=== PATIENT | male | born 1965 | race Two or more races ===

== ENCOUNTER 2017-07-27 23:55 | Inpatient (IN) | payer MEDICARE, MEDICAID ==
[~2017-07-27] VITALS: Ht 177.8 cm; Wt 71.7 kg
[2017-07-28 00:05] VITALS: BP 117/73
--- NOTE | 2017-07-28 00:05 | NUR ---
GPS ADMISSION NOTE, RECEIVED PATIENT FROM [facility]. PATIENT ARRIVED ON THIS UNIT AT 0005 VIA STRETCHER WITH 2 EMT ESCORTS. PATIENT ADMITTED ON A 5150 HOLD FOR DTS. PER HOLD PATIENT REPORTED THAT HE IS SUICIDAL WITH A PLAN TO JUMP OFF SOMETHING HIGH. PATIENT ADMITS HE HAS NOT SLEPT IN 2 DAYS, HAS A DECREASED APPETITE, AND REPORTS SADNESS DUE TO A OF A FRIEND. PATIENT UNABLE TO CONTRACT FOR SAFETY AT THIS TIME. THE 5150 WAS REVIEWED AND THE DOCUMENTATION IN THE 5150 HOLD APPEARS TO REFLECT THE PRESENTATION OF THE PATIENT. UPON FACE TO FACE ASSESSMENT PATIENT IS CURRENTLY LYING IN BED AWAKE, HAS NO S/S OR COMPLAINTS OF PAIN. PATIENT IS DISPLAYING NO S/S OF APPARENT DISTRESS. PATIENT BREATHING IS UNLABORED WITH EQUAL RISE AND FALL OF THE CHEST. PATIENT IS ALERT AND ORIENTATED X 3 ON ROOM AIR. PATIENT ASSISTED WITH TURING AND REPOSITIONING Q2HR AND PRN FOR COMFORT AND CIRCULATION. PATIENT HAS NO NEEDS AT THIS TIME. PATIENT IS NOTED TO BEING DEPRESSED, ISOLATIVE, DISHEVELED, DISORGANIZED, COOPERATIVE, AND NEEDS REDIRECTION. PATIENT HAS THOUGHTS OF JUMPING OFF A HIGH PLACE. PATIENT IS UNDER THE PSYCHIATRIC CARE OF DR. CASTILLO AND THE MEDICAL CARE OF DR WALLACE. PATIENT BELONGINGS WERE INVENTORIED AND CHECKED FOR CONTRABAND. ALL CONTRABAND REMOVED AND STORED IN PATIENT HALLWAY LOCKER. PATIENT ADVANCED DIRECTIVES PREFERENCE, IMMUNIZATIONS QUESTIONER, NECESSARY PAPERWORK, AND SKIN ASSESSMENT COMPLETED. PATIENT ORIENTATED TO ROOM, FLOOR, AND STAFF WITH ALL QUESTIONS ANSWERED. PATIENT EDUCATED ON THE USE OF THE CALL GOODMAN. PATIENT BED SIDE RAILS ARE UP X 2 FOR SAFETY. PATIENT BED IS LOCKED, LOW AND I WILL CONTINUE TO MONITOR THIS PATIENT Q 15 MIN WITH THE HELP OF STAFF TO MAINTAIN SAFETY.
[2017-07-28] MEDS ORDERED: MAGNESIUM HYDROXIDE 30 ML UDC PO PRN (01:00)
[2017-07-28] MEDS ORDERED: MAG HYDROX/AL HYDROX/SIMETH 30 ML UDC PO PRN (01:00)
[2017-07-28] MEDS ORDERED: ACETAMINOPHEN 325 MG TABLET PO PRN (01:00)
[2017-07-28 08:24] VITALS: BP 124/81
[2017-07-28 15:57] VITALS: BP 100/58
[2017-07-28] MEDS: VENLAFAXINE XR 75 MG CAP.SR.24H PO SCH (16:43)
--- NOTE | 2017-07-28 19:30 | NUR ---
GPS RN NOTE, RECEIVED PATIENT AWAKE AND IN BED NO S/S OR COMPLAINTS OF PAIN AT THIS TIME. PATIENT IS DISPLAYING NO S/S OF APPARENT DISTRESS AT THIS TIME. PATIENT BREATHING IS UNLABORED WITH EQUAL RISE AND FALL OF THE CHEST. PATIENT IS ALERT AND ORIENTED X 3 ON ROOM AIR WITH A SPOO2 98 %. PATIENT IS COMPLIANT WITH MEDICATION, COOPERATIVE, ANXIOUS AT TIMES, DISORGANIZED, AND NEEDS REORIENTATION. PATIENT DENIES SUICIDE IDEATIONS AND HOMICIDAL IDEATIONS AT THIS TIME. PATIENT ASSISTED WITH TURNING AND REPOSITIONING Q2HR AND PRN FOR COMFORT AND CIRCULATION. PATIENT HAS NO NEEDS AT THIS TIME. PATIENT EDUCATED ON THE USE OF THE CALL GOODMAN. PATIENT BED SIDE RAILS UP X 2 FOR SAFETY. PATIENT BED IS LOCKED AND LOW WILL CONTINUE TO MONITOR AND MAINTAIN SAFETY Q15 MIN WITH THE HELP OF STAFF.
[2017-07-28 19:48] VITALS: BP 119/81
[2017-07-28] MEDS: LORAZEPAM 1 MG TABLET PO PRN (19:50)
--- NOTE | 2017-07-28 19:50 | NUR ---
GPS RN NOTE, PATIENT HAS COMPLAINT OF FEELING ANXIOUS AND IS REQUESTING ATIVAN AT THIS TIME. PATIENT VITAL SIGNS ARE STABLE. GAVE ATIVAN 1MG PO Q8HR PRN ORDERED. WILL REASSESS FOR ANXIETY AND I WILL CONTINUE TO MONITOR THIS PATIENT.
[2017-07-29 06:29] LABS: BASOPHILS % (AUTO) 0.6 % (0.0-2.0); EOSINOPHILS # (AUTO) 0.1 /CMM (0.0-0.7); EOSINOPHILS % (AUTO) 1.3 % (0.0-6.0); HEMATOCRIT 48 % (39-51); HEMOGLOBIN 16.5 g/dL (13.5-17.5); LYMPHOCYTES # (AUTO) 1.5 /CMM (0.8-4.8); LYMPHOCYTES % (AUTO) 27.2 % (20.0-44.0); MEAN CORPUSCULAR HEMOGLOBIN 31 PG (26.0-33.0); MEAN CORPUSCULAR HGB CONC 34 g/dl (31.0-36.0); MEAN CORPUSCULAR VOLUME 90 fL (80-96); MONOCYTES # (AUTO) 0.5 /CMM (0.1-1.30); MONOCYTES % (AUTO) 9.3 % (2.0-12.0); NEUTROPHILS # (AUTO) 3.3 /CMM (1.8-8.9); NEUTROPHILS % (AUTO) 61.6 % (43.0-81.0); PLATELET COUNT (AUTO) 285 /CMM (150-450); RDW COEFFICIENT OF VARIATION 12.8 (11.5-15.0); WHITE BLOOD COUNT (AUTO) 5.4 K/uL (4.3-11.0)
[2017-07-29 06:47] LABS: ALBUMIN 3.4 g/dL (3.4-5.0); BILIRUBIN,TOTAL 0.6 mg/dL (0.2-1.0); CALCIUM, SERUM 8.6 mg/dL (8.5-10.1); CREATININE 0.8 mg/dL (0.6-1.3); PHOSPHORUS 3.1 mg/dL (2.5-4.9); POTASSIUM 3.6 mmol/L (3.5-5.1); TOTAL PROTEIN, SERUM 7.1 g/dL (6.4-8.2)
[2017-07-29 08:17] VITALS: BP 109/79
[2017-07-29] MEDS: VENLAFAXINE XR 75 MG CAP.SR.24H PO SCH (09:53)
--- NOTE | 2017-07-29 11:16 | NUR ---
Initial Discharge Plan: Pt. reports being homeless. Pt has a cell phone but believes it to be lost. Pt, however would like placement upon discharge (i.e. board and care and or assisted living facility). Pt was unable to recall his telephone #. Pt does not have a current support system. Pt does not want to involve his mother and or sisters in his discharge planning, currently. SW will follow up. SW will ensure pt is properly and safely discharged.
[2017-07-29 15:52] VITALS: BP 102/59
[2017-07-29] MEDS: LORAZEPAM 1 MG TABLET PO PRN (19:39)
[2017-07-29 21:05] VITALS: BP 122/84
--- NOTE | 2017-07-30 06:08 | NUR ---
GPS RN NOTES PT. RESTING HIS BED DENIES SI /HI AT THIS TIME , NO ACUTE DISTRESS NOTED , ALL NEEDS ATTENDED AND ANTICIPATED , ENDORSE TO NEXT SHIFT FOR CONTINUITY OF CARE .
[2017-07-30 08:00] VITALS: BP 110/68
[2017-07-30] MEDS: VENLAFAXINE XR 75 MG CAP.SR.24H PO SCH (08:33)
[2017-07-30 16:11] VITALS: BP 120/70
--- NOTE | 2017-07-30 17:29 | NUR ---
Discharge Planning: BETH spoke to Carlos Bradshaw from [facility], Placement Services for discharge planning purposes. Mr. Bradshaw is working with BETH to find appropriate placement for pt. BETH arranged for Mr. Bradshaw to come and assess pt on today's date (at 3:30 pm) to evaluate if he would be appropriate for one of their independent living facilities. BETH informed pt that Mr. Bradshaw would be coming on this date for an assessment; which he was in agreement. BETH will follow up.
[2017-07-30 19:54] VITALS: BP 153/79
[2017-07-30] MEDS: LORAZEPAM 1 MG TABLET PO PRN (20:18)
--- NOTE | 2017-07-30 20:18 | NUR ---
GPS RN NOTES PT. C/O ANXIETY ATIVAN 1 MG PO PRN GIVEN PER PT. REQUEST, WILL MONITOR FOR BEHAVIOR
[2017-07-31 08:00] VITALS: BP 117/67
[2017-07-31] MEDS: VENLAFAXINE XR 75 MG CAP.SR.24H PO SCH (08:17)
[2017-07-31 16:00] VITALS: BP 115/75
--- NOTE | 2017-07-31 16:03 | NUR ---
LATE ENTRY Group Note 07/30: S: Patient stated that he wanted to connect to people in his life, but did not have access to the internet or to a phone. Patient stated that he [place] at the airport. Patient stated that he wanted to reach out to people who he has shut out of his life, but felt that he was unable to do so due to not having his cellphone or a way to contact those people. O: During the group, patient appeared to be irritable and withdrawn at first. However, as the group progressed, patient seemed to engage in the group. Patient's mood seemed to be hopeless. Patient's motor activity was calm. Patient's memory seemed to be unimpaired. A: It would appear that patient isolated himself from friends and family and now wants to reconnect. The isolation seems to have increased his depressive symptoms. Patient seems to be angry at himself for losing contact with those who are close to him. P: BETH told patient that, when he is discharged from the hospital, perhaps he can utilize resources such as [employer] to gain free internet access and attempt to reconnect with loved ones. BETH Tuttle told patient that she will reach out to the police officers and paramedics that brought him into the hospital to determine if anyone is aware of where patient's belongings are. It appears that patient will benefit from therapeutic services and BETH will provide referrals and resources for outpatient therapy.
[2017-07-31 20:00] VITALS: BP 122/80
--- NOTE | 2017-07-31 20:40 | NUR ---
GPS/RN-PATIENT VERBALIZED FEELING ANXIOUS.ATIVAN 1MG.PO GIVEN ORDERED.
[2017-07-31] MEDS: LORAZEPAM 1 MG TABLET PO PRN (20:51)
[2017-08-01 08:00] VITALS: BP 109/64
[2017-08-01] MEDS: VENLAFAXINE XR 75 MG CAP.SR.24H PO SCH (08:19)
[2017-08-01 16:13] VITALS: BP 100/60
[2017-08-01 20:00] VITALS: BP 132/87
[2017-08-01] MEDS: LORAZEPAM 1 MG TABLET PO PRN (20:17)
[2017-08-02 08:12] VITALS: BP 118/71
[2017-08-02] MEDS: VENLAFAXINE XR 75 MG CAP.SR.24H PO SCH (08:13)
[2017-08-02 16:10] VITALS: BP 129/82
[2017-08-02 20:00] VITALS: BP 127/91
[2017-08-03 08:00] VITALS: BP 121/73
[2017-08-03] MEDS: VENLAFAXINE XR 75 MG CAP.SR.24H PO SCH (09:02)
[2017-08-03] MEDS: LORAZEPAM 1 MG TABLET PO PRN ×2 (09:17→20:38)
[2017-08-03 16:10] VITALS: BP 100/66
[2017-08-03 19:57] VITALS: BP 112/75
--- NOTE | 2017-08-03 20:40 | NUR ---
GPS RN NOTE PATIENT REQUESTING ATIVAN. ATIVAN 1MG ADMINISTERED SAFELY ORDERED FOR ANXIETY.
[2017-08-03] MEDS: TEMAZEPAM 7.5 MG CAPSULE PO PRN (21:29)
--- NOTE | 2017-08-03 21:35 | NUR ---
GPS RN NOTE PATIENT REQUESTING RESTORIL. STATES THAT HE DIDN'T SLEEP YESTERDAY. RESTORIL 7.5MG GIVEN SAFELY ORDERED.
--- NOTE | 2017-08-03 22:15 | NUR ---
GPS RN NOTE PATIENT SLEEPING AT THIS TIME.
[2017-08-04 08:00] VITALS: BP 108/68
[2017-08-04] MEDS: VENLAFAXINE XR 75 MG CAP.SR.24H PO SCH (09:04)
[2017-08-04] MEDS: LORAZEPAM 1 MG TABLET PO PRN ×2 (11:28→22:12)
--- NOTE | 2017-08-04 11:28 | NUR ---
RN NOTES ADMINISTERED ATIVAN 1 MG PO PRN FOR ANXIETY, PER PATIENT REQUEST, V/S TAKEN BP-103/68, P-81, CONTINUED MONITORING.
[2017-08-04 16:00] VITALS: BP 122/63
[2017-08-04] MEDS: TEMAZEPAM 7.5 MG CAPSULE PO PRN (21:29)
[2017-08-04 21:49] VITALS: BP 109/75
[2017-08-05 08:00] VITALS: BP 100/55
[2017-08-05] MEDS: VENLAFAXINE XR 75 MG CAP.SR.24H PO SCH (09:46)
--- NOTE | 2017-08-05 13:32 | NUR ---
Discharge Planning: BETH spoke to Collin , pts friend (with pts consent) for discharge planning purposes. Per Collin he is out of town until the 12 of August and is unable to accept pt into his home upon discharge. Collin, however reported "making some phone calls" to see if he can find placement for pt upon discharge. BETH informed Collin that pts psychiatrist had cleared him for discharge within the next few days. Collin Informed BETH that he would be calling today before 5pm with an update. BETH will follow up to ensure pt is properly and safely discharged.
[2017-08-05 16:10] VITALS: BP 102/61
[2017-08-05] MEDS: LORAZEPAM 1 MG TABLET PO PRN (19:44)
[2017-08-05 19:53] VITALS: BP 118/83
[2017-08-05] MEDS: TEMAZEPAM 7.5 MG CAPSULE PO PRN (21:15)
[2017-08-06 08:00] VITALS: BP 110/70
[2017-08-06] MEDS: VENLAFAXINE XR 75 MG CAP.SR.24H PO SCH (08:28)
[2017-08-06] MEDS: LORAZEPAM 1 MG TABLET PO PRN ×2 (12:00→20:03)
[2017-08-06 15:56] VITALS: BP 118/71
--- NOTE | 2017-08-06 20:03 | NUR ---
GPS RN NOTE, PATIENT HAS A COMPLAINT OF FEELING ANXIOUS AND IS REQUESTING ATIVAN AT THIS TIME. PATIENT VITAL SIGNS ARE STABLE. GAVE ATIVAN 1MG PO Q8HR PRN ORDERED. WILL REASSESS FOR ANXIETY AND I WILL CONTINUE TO MONITOR THIS PATIENT.
[2017-08-06 20:29] VITALS: BP 122/67
[2017-08-06] MEDS: TEMAZEPAM 7.5 MG CAPSULE PO PRN (21:19)
--- NOTE | 2017-08-06 21:19 | NUR ---
GPS RN NOTE, PATIENT HAS A COMPLAINT OF NOT BEING ABLE TO SLEEP AND IS REQUESTING A SLEEPING AID AT THIS TIME. PATIENT VITAL SIGNS ARE STABLE. GAVE RESTORIL 7.5 MG PO HS ORDERED. WILL REASSESS FOR INSOMNIA AND I WILL CONTINUE TO MONITOR THIS PATIENT.
[2017-08-07 08:00] VITALS: BP 101/67
[2017-08-07] MEDS: VENLAFAXINE XR 75 MG CAP.SR.24H PO SCH (08:07)
--- NOTE | 2017-08-07 11:13 | NUR ---
DR. DRAKE GAVE AN ORDER TO D/C HOLD AND D/C TO MOTHER'S HOUSE AND TO FOLLOW UP WITH PSYCH AND MEDICAL DOCTORS. PT. WITHOUT DISTRESS, DENIES SUICIDAL AND HOMICIDAL. BELONGINGS READY.
--- NOTE | 2017-08-07 11:48 | NUR ---
CALEB ALEXANDER MADE AWARE OF THE DISCHARGE AND SAID OK FOR DISCHARGE AND DISCONTINUED PRN MEDS.
--- NOTE | 2017-08-07 12:21 | NUR ---
Discharge Planning: SW obtained bus tokens (10) from Nursing Integration Engineer, Marlyn and handed them to Charge Nurse, Darnell for patient's transportation to his mother's home, Donna [place] [address] [place] [id number]; . Pts mother was also notified of pts discharge plan. Pts mother was in agreement.
--- NOTE | 2017-08-07 12:29 | NUR ---
PT. LEFT THE UNIT WITH BELONGINGS AND ESCORTED BY STAFF TO THE LOBBY. LEFT WITHOUT DISTRESS, AMBULATORY AND ON STABLE CONDITION. PT. WAS INSTRUCTED ON MED TO CONTINUE AT HOME AND VERBALIZES UNDERSTANDING AND ADVISED TO FOLLOW UP WITH PSYCH AND MEDICAL DOCTORS AND AGREED. PT. IS DISCHARGE WITH TOKENS. V/S TAKEN: BP 134/64. GA 83, RR 18, TEMP: 98.8 AND OXYGEN SAT 95%.
--- NOTE | 2017-08-07 13:55 | NUR ---
Discharge Note: Patient will be discharged on this date. Pt will be traveling via bus to his mother's home; [address] [address]. Pt asserted that he could travel on bus to his mother's home and "have done it a lot of times." Patient was provided with 10 bus tokens for transportation purposes. Pt and Pts mother, Donna Chase have been notified and are in agreement. Pt appeared to be alert and was oriented to time, place, situation and self. Patient denied suicidal/homicidal ideation at time of release from hospital. Pt was provided the following referrals: Psychiatrist: [facility], ; [address] [id number]. [facility], Friday- 8:30 to 3:30 pm. Speak to officer of the day. Merchant Seaman: [facility], ; [address], [place] [address]. Pt will follow up and make an appointment.
== END 2017-08-07 12:15 | disposition home or self-care (01) | DRG 885 ==
LOC: GPS 23:55
PROVIDERS: ADMIT Psychiatry & Neurology Psychiatry; ATTEND Nurse Practitioner Acute Care
DX: F33.2 Major depressive disorder, recurrent severe without psychotic features (principal); R45.851 Suicidal ideations; F15.20 Other stimulant dependence, uncomplicated; E78.5 Hyperlipidemia, unspecified; F10.20 Alcohol dependence, uncomplicated; Y90.9 Presence of alcohol in blood, level not specified; F12.20 Cannabis dependence, uncomplicated
CPT/HCPCS: 36415; 80053-TC; 80061-TC; 83735-TC; 84100-TC; 85025-TC; 87081-TC

== ENCOUNTER 2017-08-31 17:16 | Inpatient (IN) | payer MEDICARE, MEDICAID ==
[~2017-08-31] VITALS: Ht 177.8 cm; Wt 81.6 kg
--- NOTE | 2017-08-31 17:35 | NUR ---
AAOX3, WALKED IN TO ER C/O DEPRESSION, SI WITH PLAN TO JUMP OFF THE BRIDGE SOMEWHERE IN [place]. RR IS EVEN AND UNLABORED WITH NAD NOTED. SKIN IS WARM AND DRY. SI PRECAUTION IS IN PLACE. AWAITING MD FOR EVAL.
[2017-08-31 17:52] LABS: BASOPHILS % (AUTO) 0.2 % (0.0-2.0); EOSINOPHILS # (AUTO) 0.1 /CMM (0.0-0.7); EOSINOPHILS % (AUTO) 0.6 % (0.0-6.0); HEMATOCRIT 42 % (39-51); HEMOGLOBIN 14.2 g/dL (13.5-17.5); LYMPHOCYTES # (AUTO) 1.3 /CMM (0.8-4.8); LYMPHOCYTES % (AUTO) 12.7 % (20.0-44.0); MEAN CORPUSCULAR HEMOGLOBIN 31 PG (26.0-33.0); MEAN CORPUSCULAR HGB CONC 34 g/dl (31.0-36.0); MEAN CORPUSCULAR VOLUME 90 fL (80-96); MONOCYTES # (AUTO) 0.4 /CMM (0.1-1.30); MONOCYTES % (AUTO) 4.2 % (2.0-12.0); NEUTROPHILS # (AUTO) 8.2 /CMM (1.8-8.9); NEUTROPHILS % (AUTO) 82.3 % (43.0-81.0); PLATELET COUNT (AUTO) 290 /CMM (150-450); RDW COEFFICIENT OF VARIATION 12.7 (11.5-15.0); RED BLOOD CELL COUNT(AUTO) 4.61 MIL/uL (4.5-6.0)
[2017-08-31 17:52] LABS: APPEARANCE,URINE CLEAR (CLEAR); BILIRUBIN,URINE NEGATIVE (NEGATIVE); BLOOD, URINE NEGATIVE Ery/uL (NEGATIVE); COLOR,URINE YELLOW (YELLOW); KETONES,URINE NEGATIVE (NEGATIVE); LEUKOCYTE ESTERASE ,URINE NEGATIVE (NEGATIVE); NITRITE, URINE NEGATIVE (NEGATIVE); PH,URINE 5.5 (5.0-8.0); PROTEIN,URINE NEGATIVE (NEGATIVE); UGLUCOSE NEGATIVE (NEGATIVE); UROBILINOGEN,URINE 0.2 EU/dL (0.2)
[2017-08-31 18:09] LABS: CALCIUM, SERUM 8.9 mg/dL (8.5-10.1); POTASSIUM 3.9 mmol/L (3.5-5.1)
[2017-08-31 18:20] LABS: BILIRUBIN,TOTAL 0.2 mg/dL (0.2-1.0); TOTAL PROTEIN, SERUM 7.5 g/dL (6.4-8.2)
[2017-08-31 18:22] LABS: SALICYLATE 1.3 mg/dL (2.8-20.0)
--- NOTE | 2017-08-31 18:31 | NUR ---
ANGELICA CHAVARRIA CALLED FOR EVAL
--- NOTE | 2017-08-31 19:22 | NUR ---
REPORT RECEIVED FROM Survios FOR ONOFRE.
--- NOTE | 2017-08-31 20:25 | NUR ---
JANELL 212-B
--- NOTE | 2017-08-31 20:36 | NUR ---
ACCEPTING PSYCHIATRIST DR. VIDAL CAMERON FOR MEDICAL
--- NOTE | 2017-08-31 21:08 | NUR ---
REPORT GIVEN TO UBALDO WALLIS FOR ONOFRE.
--- NOTE | 2017-08-31 21:13 | NUR ---
PT TO [place] [id number] VIA W/C WITH EMT. VSS.
[2017-08-31 21:37] VITALS: BP 122/80
[2017-08-31] MEDS ORDERED: MAGNESIUM HYDROXIDE 30 ML UDC PO PRN (22:00)
[2017-08-31] MEDS ORDERED: ACETAMINOPHEN 325 MG TABLET PO PRN (22:00)
[2017-08-31] MEDS ORDERED: MAG HYDROX/AL HYDROX/SIMETH 30 ML UDC PO PRN (22:00)
--- NOTE | 2017-08-31 22:00 | NUR ---
GPS OPHTHALMIC MEDICAL TECHNICIAN NOTES: ADMITTED A 52 YO MALE WHO CAME FROM HOME AND WALKED INTO THE EMERGENCY ROOM. ON 5150 HOLD FOR DANGER TO SELF. PER HOLD THE PATIENT ADMITS TO BEING SUICIDAL WITH A PLAN TO JUMP OFF THE BRIDGE AT [place]. PATIENT WAS BROUGHT INTO THE UNIT BY EMT PERSONNEL. BELONGINGS AND CONTRABAND WERE CHECKED. PATIENT SHOWERED IN THE UNIT, SUPERVISED BY STAFF. PATIENT PRESENTS ALERT AND ORIENTED X3, NO COMPLAINS OF PAIN OR DISCOMFORT THIS TIME. HE ADMITS TO FEELING SUICIDAL AND HEARING VOICES. WHEN ASKED WHAT THESE VOICES TELL HIM, PATIENT WAS UNABLE TO ANSWER. PATIENT CLAIMS TO HAVE BEEN CYCLING FROM [place] UP TO HERE. HE CLAIMS TO HAVE NO MEDICAL ISSUES OF THIS TIME. REALITY ORIENTATION DONE. ENVIRONMENTAL SAFETY CHECK DONE. CARE PLAN INITIATED. Q15 MIN CHECKS STARTED. PATIENT CLAIMS TO HAVE NO SKIN ISSUES THIS TIME. REALITY ORIENTATION DONE. ORIENTATION TO UNIT, STAFF, CARE PLAN AND DOCTORS DONE. PATIENT WILL BE UNDER THE CARE OF DR. DRAKE AND [facility]. PROVIDED A SLEEP CONDUCIVE ENVIRONMENT PATIENT CLAIMS THAT HE HASN'T HAD GOOD SLEEP THE PAST COUPLE OF DAYS. ATTENDED TO ALL PATIENT'S NEEDS. WILL MONITOR PATIENT FOR MOOD, SAFETY AND BEHAVIOR.
[2017-08-31] MEDS ORDERED: TEMAZEPAM 7.5 MG CAPSULE ONE (22:43)
[2017-08-31] MEDS: TEMAZEPAM 7.5 MG CAPSULE PO PRN (22:46)
--- NOTE | 2017-08-31 22:55 | NUR ---
GPS RN: PATIENT REQUESTED FOR SLEEPING MEDICATION- RESTORIL 7.5 MG PULLED OUT FROM OMNICELL AN OVERRIDE BY RN MEDICARE CLARA- GIVEN TO PATIENT A PRN MEDICATION. WILL MONITOR PATIENT'S SLEEPING PATTERNS.
[2017-09-01 08:00] VITALS: BP 130/76
[2017-09-01] MEDS ORDERED: BENZTROPINE MESYLATE (1 MG) 1 MG TABLET PO PRN (12:30)
[2017-09-01] MEDS: VENLAFAXINE XR 75 MG CAP.SR.24H PO SCH (13:25)
[2017-09-01 16:00] VITALS: BP 115/66
[2017-09-01] MEDS: ARIPIPRAZOLE 5 MG TABLET PO SCH ×2 (16:23→17:04)
--- NOTE | 2017-09-01 16:23 | NUR ---
RN-CO:Patient refused Abilify, encouraged 3x still refused.
--- NOTE | 2017-09-01 17:08 | NUR ---
RN-CO: Patient changed his mind and took Abilify 2.5 mg po.
[2017-09-01 19:52] VITALS: BP 118/77
[2017-09-02 07:14] LABS: BASOPHILS % (AUTO) 0.8 % (0.0-2.0); EOSINOPHILS # (AUTO) 0.2 /CMM (0.0-0.7); EOSINOPHILS % (AUTO) 3.5 % (0.0-6.0); HEMATOCRIT 41 % (39-51); HEMOGLOBIN 14.3 g/dL (13.5-17.5); LYMPHOCYTES # (AUTO) 1.3 /CMM (0.8-4.8); LYMPHOCYTES % (AUTO) 24.5 % (20.0-44.0); MEAN CORPUSCULAR HEMOGLOBIN 31 PG (26.0-33.0); MEAN CORPUSCULAR HGB CONC 35 g/dl (31.0-36.0); MEAN CORPUSCULAR VOLUME 90 fL (80-96); MONOCYTES # (AUTO) 0.3 /CMM (0.1-1.30); MONOCYTES % (AUTO) 6.3 % (2.0-12.0); NEUTROPHILS # (AUTO) 3.4 /CMM (1.8-8.9); NEUTROPHILS % (AUTO) 64.9 % (43.0-81.0); PLATELET COUNT (AUTO) 294 /CMM (150-450); RDW COEFFICIENT OF VARIATION 12.9 (11.5-15.0); RED BLOOD CELL COUNT(AUTO) 4.58 MIL/uL (4.5-6.0); WHITE BLOOD COUNT (AUTO) 5.2 K/uL (4.3-11.0)
[2017-09-02 07:54] VITALS: BP 131/76
[2017-09-02 08:03] LABS: ALBUMIN 3.7 g/dL (3.4-5.0); BILIRUBIN,TOTAL 0.2 mg/dL (0.2-1.0); CALCIUM, SERUM 9.2 mg/dL (8.5-10.1); CREATININE 0.9 mg/dL (0.6-1.3); POTASSIUM 4.2 mmol/L (3.5-5.1); TOTAL PROTEIN, SERUM 7.1 g/dL (6.4-8.2)
[2017-09-02] MEDS: VENLAFAXINE XR 75 MG CAP.SR.24H PO SCH (08:18)
[2017-09-02] MEDS: ARIPIPRAZOLE 5 MG TABLET PO SCH ×2 (08:18→20:06)
[2017-09-02] MEDS: LORAZEPAM 0.5 MG TABLET PO PRN (08:19)
--- NOTE | 2017-09-02 13:20 | NUR ---
Initial Discharge Note: BETH attests to the accuracy of the assessment that was completed on 07/29/2017. BETH met with pt on this date and reviewed assessment for any changes and or updates. BETH assessed that pt was "hearing things and seeing things" as to the reason why he returned to the hospital. Pt reported feeling, "things out of control and I was feeling hopeless about my current situation." SW revisited placement options with pt (i.e. assisted living and board and care) and gathered that pt was in agreement to discharge once he was ready and stable. BETH will work with pt and treating team to formulate a safe and proper discharge for pt once he is stable.
[2017-09-02 16:00] VITALS: BP 138/93
[2017-09-02 19:52] VITALS: BP 130/70
[2017-09-03 08:00] VITALS: BP 129/84
[2017-09-03] MEDS: VENLAFAXINE XR 75 MG CAP.SR.24H PO SCH (09:22)
[2017-09-03] MEDS: LORAZEPAM 0.5 MG TABLET PO PRN (11:09)
--- NOTE | 2017-09-03 11:09 | NUR ---
RN NOTES ADMINISTERED ATIVAN 0.5 MG PO PRN FOR ANXIETY, PER PATIENT REQUEST, V/S TAKEN BP-129/89, P-100, CONTINUED MONITORING.
[2017-09-03 16:00] VITALS: BP 137/88
[2017-09-03] MEDS: ARIPIPRAZOLE 5 MG TABLET PO SCH (20:04)
[2017-09-03 20:08] VITALS: BP 109/79
[2017-09-03] MEDS: ATORVASTATIN 10 MG TABLET PO SCH (21:01)
[2017-09-04 08:00] VITALS: BP 121/76
[2017-09-04] MEDS: VENLAFAXINE XR 75 MG CAP.SR.24H PO SCH (08:25)
[2017-09-04] MEDS: LORAZEPAM 0.5 MG TABLET PO PRN ×2 (12:33→19:21)
--- NOTE | 2017-09-04 12:34 | NUR ---
GPS/RN PATIENT REPORTS BEING ANXIOUS, ADMINISTERED ATIVAN 0.5 MG PER PATENT REQUEST, WILL CONTINUE TO MONITOR.
[2017-09-04 15:42] VITALS: BP 109/73
[2017-09-04] MEDS: ARIPIPRAZOLE 5 MG TABLET PO SCH (19:21)
[2017-09-04 20:00] VITALS: BP 107/70
[2017-09-04] MEDS: ATORVASTATIN 10 MG TABLET PO SCH (21:03)
[2017-09-04] MEDS: TEMAZEPAM 7.5 MG CAPSULE PO PRN (21:03)
[2017-09-05 08:00] VITALS: BP 107/88
[2017-09-05] MEDS: LORAZEPAM 0.5 MG TABLET PO PRN (08:33)
[2017-09-05] MEDS: VENLAFAXINE XR 75 MG CAP.SR.24H PO SCH (08:33)
--- NOTE | 2017-09-05 08:39 | NUR ---
PT. WITH AN ORDER TO D/C HOLD AND D/C TODAY AND TO FOLLOW UP WITH PSYCH AND MEDICAL DOCTORS.
--- NOTE | 2017-09-05 10:49 | NUR ---
Discharge Note: Patient will discharge to [address] [place] [address]. Patient stated that he spoke with Marya from the [facility]. Patient stated that he arranged room and board with this program. Patient stated that he did not want to arrange anything for him and did not wish to discuss alternative placement/programs. Patient arranged his own transportation through the art program. The transportation is scheduled for 10:30am. Upon discharge, patient is alert and oriented x4. Patient is ambulatory. Patient denies suicidal and homicidal ideation. Patient denies visual and auditory hallucinations. Patient stated that Marya also helped secure a psychiatrist for him and that he will be seeing Dr. Mckee [address], [place] fifth floor, today [09/05] at 2pm. provided referrals for [facility] [address] [facility] [address] so that patient is able to see an card player. BETH also provided patient with a referral to the [facility] in [place], [address] [place] [address] and encouraged patient to present at 9am on 09/08/17 for intake screening. Additional referrals included: Medical Services [address] [facility], [address] [address] and [facility] [address] [place] [address] .
--- NOTE | 2017-09-05 12:11 | NUR ---
pt is discharge by Dr. Chu. Test Deck Supervisor agrees with discharge plan. Pt going to [address] [place] [address]. Pt going to attend at [facility]. Pt is alert oriented x 3 and ambulatory. he is calm and cooperative. denies s/i and/or h/i at time of discharge. no acute distress noted. prescription for both psych and medical has been prescribed. belongings returned to patient. exitcare summary completed. pt arranged his own private transportation to his destination. pt left in stable condition. Addendum: 09/05/17 at 1216 by GAIL ZAMORANO RN pt is discharge by Dr. Chu. Test Deck Supervisor agrees with discharge plan. Pt going to [address] [place] [address]. Pt going to attend at [facility]. Pt is alert oriented x 3 and ambulatory. he is calm and cooperative. denies s/i and/or h/i at time of discharge. no acute distress noted. Skin assessment done. skin clear and intact. prescription for both psych and medical has been prescribed. belongings returned to patient. exitcare summary completed. pt arranged his own private transportation to his destination. pt left in stable condition.
== END 2017-09-05 11:00 | disposition home or self-care (01) | DRG 885 ==
LOC: ER 17:18 → GPS 20:42
PROVIDERS: ADMIT Psychiatry & Neurology Psychosomatic Medicine; ATTEND Nurse Practitioner Acute Care
DX: F33.3 Major depressive disorder, recurrent, severe with psychotic symptoms (principal); R45.851 Suicidal ideations; E78.5 Hyperlipidemia, unspecified; F12.90 Cannabis use, unspecified, uncomplicated
CPT/HCPCS: 36415; 80048-TC; 80053-TC; 80061-TC; 80076-TC; 80305; 81000-TC; 85025-TC; 87081-TC; A4606; G0480; Z7610

== ENCOUNTER 2018-05-08 21:36 | Emergency (ER) | payer MEDICAID, MEDICARE ==
[~2018-05-08] VITALS: Ht 177.8 cm; Wt 72.6 kg
--- NOTE | 2018-05-08 21:39 | NUR ---
CALLED PT NAME X3. PER ADMITTING STATES PT STEPPED OUT FOR AIR. WILL FOLLOW UP
--- NOTE | 2018-05-08 21:50 | NUR ---
PA AT BEDSIDE FOR EVALUATION
--- NOTE | 2018-05-08 21:52 | NUR ---
PT BIBSELF C/O FLOATERS IN EYES, HALLUCINATIONS, MOOD SWINGS X 2 MONTHS. +SI - HI PLANS TO OVERDOSE ON DRUGS AND ALCOHOL. PT NOTED ANXIOUS. PT AAOX4. NO ACUTE DISTRESS NOTED AT THIS TIME. WARM SKIN AND INTACT. PT AMBULATORY TO ER BED 12. PT PLACED ON MONITOR
--- NOTE | 2018-05-08 22:15 | NUR ---
COMPONENT ASSEMBLER AT BEDSIDE FOR BLOOD DRAW
[2018-05-08 22:27] LABS: BASOPHILS % (AUTO) 0.4 % (0.0-2.0); EOSINOPHILS % (AUTO) 0.2 % (0.0-6.0); HEMATOCRIT 41 % (39-51); HEMOGLOBIN 13.7 g/dL (13.5-17.5); LYMPHOCYTES # (AUTO) 1.2 /CMM (0.8-4.8); LYMPHOCYTES % (AUTO) 25.1 % (20.0-44.0); MEAN CORPUSCULAR HGB CONC 33 g/dl (31.0-36.0); MEAN CORPUSCULAR VOLUME 93 fL (80-96); MONOCYTES # (AUTO) 0.5 /CMM (0.1-1.30); NEUTROPHILS # (AUTO) 2.9 /CMM (1.8-8.9); NEUTROPHILS % (AUTO) 63.3 % (43.0-81.0); PLATELET COUNT (AUTO) 248 /CMM (150-450); RDW COEFFICIENT OF VARIATION 12.5 (11.5-15.0); RED BLOOD CELL COUNT(AUTO) 4.43 MIL/uL (4.5-6.0); WHITE BLOOD COUNT (AUTO) 4.6 K/uL (4.3-11.0)
[2018-05-08] MEDS ORDERED: ACETAMINOPHEN ES 500 MG TABLET ONE (22:29)
[2018-05-08] MEDS ORDERED: OLANZAPINE 5 MG TABLET ONE (22:30)
[2018-05-08] MEDS ORDERED: OLANZAPINE 5 MG TABLET PO ONE (22:30)
[2018-05-08] MEDS ORDERED: ACETAMINOPHEN 325 MG TABLET PO ONE (22:30)
[2018-05-08 22:34] LABS: CALCIUM, SERUM 8.8 mg/dL (8.5-10.1); CARBON DIOXIDE 27 mmol/L (21-32); CHLORIDE 101 mmol/L (98-107); CREATININE 0.9 mg/dL (0.6-1.3); GLUCOSE 104 mg/dL (74-106); POTASSIUM 3.2 mmol/L (3.5-5.1); SODIUM SERUM 140 mmol/L (136-145); UREA NITROGEN, BLOOD 13 mg/dL (7-18)
[2018-05-08 22:39] LABS: APPEARANCE,URINE CLEAR (CLEAR); BILIRUBIN,URINE NEGATIVE (NEGATIVE); BLOOD, URINE NEGATIVE Ery/uL (NEGATIVE); KETONES,URINE NEGATIVE (NEGATIVE); LEUKOCYTE ESTERASE ,URINE NEGATIVE (NEGATIVE); NITRITE, URINE NEGATIVE (NEGATIVE); PROTEIN,URINE NEGATIVE (NEGATIVE); UGLUCOSE NEGATIVE (NEGATIVE); UROBILINOGEN,URINE 0.2 EU/dL (0.2)
[2018-05-08 22:41] LABS: COLOR,URINE STRAW (YELLOW)
[2018-05-08 22:52] LABS: ALANINE AMINOTRANSFERASE 33 U/L (12-78); ALCOHOL, BLOOD 52 mg/dL (0-0); ALKALINE PHOSPHATASE 84 U/L (46-116); ASPARTATE AMINOTRANSFERASE 36 U/L (15-37); BILIRUBIN,DIRECT 0.1 mg/dL (0.0-0.2); BILIRUBIN,TOTAL 0.4 mg/dL (0.2-1.0); TOTAL PROTEIN, SERUM 7.3 g/dL (6.4-8.2)
[2018-05-08 22:53] LABS: ACETAMINOPHEN < 0 ug/ml (10-30); SALICYLATE 1.5 mg/dL (2.8-20.0)
[2018-05-08] MEDS ORDERED: ASPIRIN 81 MG TAB.CHEW PO ONE (23:00)
[2018-05-08] MEDS ORDERED: POTASSIUM CHLORIDE 20 MEQ TAB.PRT.SR PO ONE ×2 (23:30→23:44)
[2018-05-08] MEDS ORDERED: ASPIRIN 81 MG TAB.CHEW ONE (23:44)
--- NOTE | 2018-05-09 02:58 | NUR ---
ATTEMPTED TO CALL BRYAN DOMINGO FOR REPORT, NO ANSWER.
--- NOTE | 2018-05-09 03:11 | NUR ---
GAVE REPORT TO BRYAN DOMINGO NURSE FOR ONOFRE
--- NOTE | 2018-05-09 03:19 | NUR ---
Pt discharged to [facility] via taxi. Pt ambulatory with steady gait, vital signs stable.
[2018-05-09 03:21] VITALS: BP 154/85
== END 2018-05-09 03:22 ==
LOC: ER 21:37
DX: R45.851 Suicidal ideations (principal); F25.9 Schizoaffective disorder, unspecified; R94.31 Abnormal electrocardiogram [ECG] [EKG]; F10.10 Alcohol abuse, uncomplicated; E87.6 Hypokalemia; R53.83 Other fatigue; E86.0 Dehydration; F41.9 Anxiety disorder, unspecified; F32.9 Major depressive disorder, single episode, unspecified; F17.200 Nicotine dependence, unspecified, uncomplicated; F19.10 Other psychoactive substance abuse, uncomplicated; R06.00 Dyspnea, unspecified; Y90.2 Blood alcohol level of 40-59 mg/100 ml; Z60.2 Problems related to living alone
CPT/HCPCS: 36415; 71045; 80048; 80076; 80305; 80329; 81001; 84484; 85025; 93005; 99285; 99406; A4606; G0480 ×2; Z7610; 81000-TC

== ENCOUNTER 2022-06-02 13:35 | Inpatient (IN) | payer MEDICAID, OTHER ==
[~2022-06-02] VITALS: Ht 177.8 cm; Wt 64.6 kg
[2022-06-02] MEDS ORDERED: ONDANSETRON 4 MG TAB.RAPDIS SL ONE (14:00)
[2022-06-02] MEDS ORDERED: ONDANSETRON HCL/PF 4 MG/2 ML VIAL ONE (14:14)
[2022-06-02] MEDS ORDERED: NITROGLYCERIN PACKET 1 GM PACKET ONE (14:14)
[2022-06-02] MEDS ORDERED: ASPIRIN 325 MG TABLET ONE (14:15)
[2022-06-02] MEDS ORDERED: IV NS 0.9% 500 ML BAG IV ONE (14:30)
[2022-06-02] MEDS ORDERED: ENALAPRILAT DIHYD. (2.5MG/2ML) 1.25 MG/ML VIAL IV ONE (14:30)
[2022-06-02] MEDS ORDERED: ONDANSETRON HCL/PF 4 MG/2 ML VIAL IVP ONE (14:30)
[2022-06-02] MEDS ORDERED: ASPIRIN 325 MG TABLET PO ONE (14:30)
[2022-06-02] MEDS ORDERED: NITROGLYCERIN PACKET 1 GM PACKET TD ONE (14:30)
[2022-06-02 14:49] LABS: BASOPHILS % (AUTO) 0.4 % (0.0-2.0); HEMATOCRIT 47 % (39-51); HEMOGLOBIN 15.7 g/dL (13.5-17.5); LYMPHOCYTES # (AUTO) 1.1 K/uL (0.8-4.8); LYMPHOCYTES % (AUTO) 11.2 % (20.0-44.0); MEAN CORPUSCULAR HGB CONC 34 g/dl (31.0-36.0); MEAN CORPUSCULAR VOLUME 92 fL (80-96); MONOCYTES # (AUTO) 0.2 K/uL (0.1-1.30); MONOCYTES % (AUTO) 1.9 % (2.0-12.0); NEUTROPHILS # (AUTO) 8.3 K/uL (1.8-8.9); NEUTROPHILS % (AUTO) 86.5 % (43.0-81.0); PLATELET COUNT (AUTO) 264 K/uL (150-450); RED BLOOD CELL COUNT(AUTO) 5.08 MIL/uL (4.5-6.0); WHITE BLOOD COUNT (AUTO) 9.6 K/uL (4.3-11.0)
--- NOTE | 2022-06-02 14:50 | NUR ---
URINE SAMPLE COLLECTED AND SENT TO LAB
[2022-06-02 15:00] LABS: BILIRUBIN,URINE NEGATIVE (NEGATIVE); CARBON DIOXIDE 29 mmol/L (21-32); CHLORIDE 99 mmol/L (98-107); COLOR,URINE YELLOW (YELLOW); CREATININE 0.7 mg/dL (0.6-1.3); GLUCOSE 120 mg/dL (74-106); LEUKOCYTE ESTERASE ,URINE NEGATIVE (NEGATIVE); NITRITE, URINE NEGATIVE (NEGATIVE); PH,URINE 8.5 (5.0-8.0); POTASSIUM 3.2 mmol/L (3.5-5.1); PROTEIN,URINE 30 mg/dl (NEGATIVE); SODIUM SERUM 138 mmol/L (136-145); UGLUCOSE NEGATIVE (NEGATIVE); UREA NITROGEN, BLOOD 7 mg/dL (7-18); UROBILINOGEN,URINE 0.2 EU/dL (0.2)
--- NOTE | 2022-06-02 15:00 | NUR ---
IV LINE INSERTED ON VIC #20
[2022-06-02] MEDS ORDERED: ENALAPRILAT INJ (1.25 MG/ML) 1.25 MG/ML VIAL IV ONE (15:04)
[2022-06-02] MEDS ORDERED: ONDANSETRON 4 MG TAB.RAPDIS ONE (15:04)
[2022-06-02 15:05] LABS: ALANINE AMINOTRANSFERASE 19 U/L (12-78); ALBUMIN 4.5 g/dL (3.4-5.0); ALCOHOL, BLOOD 63 mg/dL (0-0); ALKALINE PHOSPHATASE 76 U/L (46-116); ASPARTATE AMINOTRANSFERASE 14 U/L (15-37); BILIRUBIN,DIRECT 0.1 mg/dL (0.0-0.2); BILIRUBIN,TOTAL 0.3 mg/dL (0.2-1.0); TOTAL PROTEIN, SERUM 8.6 g/dL (6.4-8.2)
[2022-06-02 15:08] LABS: ACETAMINOPHEN 0 ug/ml (10-30)
--- NOTE | 2022-06-02 15:10 | NUR ---
BP 183/111, HR-81; ENALAPRILAT IV 1.25MG ADMINISTERED INDICATED.
--- NOTE | 2022-06-02 15:11 | NUR ---
COVID SWAB COLLECTED AND SENT TO LAB
--- NOTE | 2022-06-02 15:14 | NUR ---
MOVE SHEET SUBMITTED.
[2022-06-02 15:50] LABS: BACTERIA,URINE None seen /HPF (None Seen); RBC,URINE 0-2 /HPF (0-2); SQUAMOUS EPITHELIAL CELL,UR 0-2 /HPF (None Seen); URINE AMORPHOUS PHOSPHATES Moderate /HPF (None Seen); WBC,URINE 0-2 /HPF (0-3)
--- NOTE | 2022-06-02 16:00 | NUR ---
RECEIVED CALL FROM MADHAVI (FOXING PAINTER) [phone]; PROVIDED CLINICALS/INFO ABT PT.
--- NOTE | 2022-06-02 16:06 | NUR ---
BP-178/108, HR-85; DR ZUÑIGA MADE AWARE W/ NO NEW ORDER AT THIS TIME.
--- NOTE | 2022-06-02 16:40 | NUR ---
MADHAVI, SEXUAL ASSAULT COUNSELOR, WILL CALL BACK FOR AUTH. Addendum: 06/02/22 at 1744 by NANCY NO BED AVAILABLE PER MADHAVI SEXUAL ASSAULT COUNSELOR
--- NOTE | 2022-06-02 17:26 | NUR ---
[facility] CALLED PUMP MACHINE OPERATOR PAGED.
[2022-06-02] MEDS ORDERED: ACETAMINOPHEN 325 MG TABLET PO PRN (19:00)
[2022-06-02] MEDS ORDERED: ONDANSETRON HCL/PF 4 MG/2 ML VIAL IVP PRN (19:00)
[2022-06-02] MEDS ORDERED: Z GUARD REMEDY 4 OZ OINT TP PRN (19:00)
[2022-06-02] MEDS ORDERED: MAGNESIUM HYDROXIDE 30 ML UDC PO PRN (19:00)
[2022-06-02] MEDS ORDERED: MAG HYDROX/AL HYDROX/SIMETH 30 ML UDC PO PRN (19:00)
[2022-06-02] MEDS ORDERED: ZOLPIDEM TARTRATE 5 MG TABLET PO PRN (19:00)
[2022-06-02] MEDS ORDERED: LORAZEPAM INJ 2 MG/ML VIAL ONE (20:13)
[2022-06-02 20:22] LABS: LIPASE 230 U/L (73-393)
[2022-06-02] MEDS ORDERED: LORAZEPAM INJ 2 MG/ML VIAL IV ONE (20:30)
[2022-06-02] MEDS ORDERED: hydrALAZINE HCL IV 20 MG VIAL IV PRN (20:30)
--- NOTE | 2022-06-02 20:55 | NUR ---
REPORT GIVEN TO SETH CONNER FOR ONOFRE
--- NOTE | 2022-06-02 21:30 | NUR ---
JEWELRY ENAMELER OPENING NOTE: PATIENT ARRIVED ON UNIT ON RCRUMP FROM ER. CHIEF COMPLAINT OF CHEST PAIN, NAUSEA AND VOMITING D/T ETOH WITHDRAWAL, AND SUICIDAL IDEATION. PAST HISTORY INCLUDES HTN, SCHIZOAFFECTIVE DISORDER, ANXIETY AND DEPRESSION. ER DOC COULD NOT GET PATIENT INTO GPS SO IS HERE TO R/O ACS. TELE READING IS SINUS TACHYCARDIA 170 BPM. IV ACCESS TO VIC 20G RUNNING D5 1/2 NS AT 75 ML/HR. IV HYDRALAZINE TO BE GIVEN EVERY 4 HOURS TO BRING B/P DOWN. A/O X 3, ABLE TO MAKE NEEDS KNOWN. AMBULATORY, USES URINAL. SKIN IS INTACT.SAFETY PRECAUTIONS IN PLACE: BED IN LOWEST AND LOCKED POSITION, SIDE RAILS UP X 2, CALL LIGHT AND TRAY TABLE WITHIN REACH. WILL CONTINUE TO MONITOR.
[2022-06-02 21:32] VITALS: BP 204/129
[2022-06-02 22:00] VITALS: BP 177/114
[2022-06-02 23:00] VITALS: BP 177/116
[2022-06-03] VITALS (7 sets, daily range): BP systolic 126–177; BP diastolic 84–125
[2022-06-03] MEDS: hydrALAZINE HCL IV 20 MG VIAL IV PRN ×2 (01:40→07:16)
[2022-06-03] MEDS: IV D5/0.45 NACL 1,000 ML IV PRN (04:15)
[2022-06-03 07:13] LABS: BASOPHILS % (AUTO) 0.2 % (0.0-2.0); HEMATOCRIT 48 % (39-51); LYMPHOCYTES % (AUTO) 10.4 % (20.0-44.0); MEAN CORPUSCULAR HGB CONC 34 g/dl (31.0-36.0); MEAN CORPUSCULAR VOLUME 92 fL (80-96); MONOCYTES # (AUTO) 0.7 K/uL (0.1-1.30); MONOCYTES % (AUTO) 7.2 % (2.0-12.0); NEUTROPHILS # (AUTO) 7.8 K/uL (1.8-8.9); NEUTROPHILS % (AUTO) 82.2 % (43.0-81.0); PLATELET COUNT (AUTO) 298 K/uL (150-450); RED BLOOD CELL COUNT(AUTO) 5.15 MIL/uL (4.5-6.0); WHITE BLOOD COUNT (AUTO) 9.6 K/uL (4.3-11.0)
--- NOTE | 2022-06-03 07:30 | NUR ---
RN OPENING NOTES RECEIVED PATIENT LAYING IN BED, ASLEEP, EASILY AROUSED. NO SIGNS OF ACUTE DISTRESS NOTED. ON ROOM AIR TOLERATING WELL, NO SOB NOTED, BREATHING EVEN AND UNLABORED. ON TELE MONITOR SHOWING SINUS TACH, HR @ 118. PATIENT DENIES ANY PAIN AT THIS TIME. NOTED WITH IV ACCESS ON LEFT AC #20G, INTACT AND PATENT WITH IVF OF D5 1/2 NS @75ML/HR RUNNING. SAFETY MEASURE IN PLACE. BED IN LOWEST AND LOCKED POSITION, SIDE RAILS UP X2, CALL LIGHT PLACED WITHIN EASY REACH. WILL CONTINUE TO MONITOR PATIENT.
[2022-06-03 07:41] LABS: CALCIUM, SERUM 8.8 mg/dL (8.5-10.1); CREATININE 0.7 mg/dL (0.6-1.3); MAGNESIUM 1.6 mg/dL (1.8-2.4); PHOSPHORUS 2.8 mg/dL (2.5-4.9); POTASSIUM 3.1 mmol/L (3.5-5.1)
--- NOTE | 2022-06-03 07:44 | NUR ---
TOWEL SEWER CLOSING NOTE: PATIENT LYING IN BED SLEEPING. TELE READING IS SINUS TACHYCARDIA 117 BPM. IV ACCESS TO VIC 20G RUNNING D5 1/2 NS AT 75 ML/HR. IV HYDRALAZINE LAST ADMINISTERED AT 0725. A/O X 3, ABLE TO MAKE NEEDS KNOWN. AMBULATORY, USES URINAL. SKIN IS INTACT. SAFETY PRECAUTIONS MAINTAINED: BED IN LOWEST AND LOCKED POSITION, SIDE RAILS UP X 2, CALL LIGHT AND TRAY TABLE WITHIN REACH. WILL ENDORSE TO DAY SHIFT FOR CONTINUITY OF CARE.
[2022-06-03] MEDS: PANTOPRAZOLE 40 MG VIAL IV SCH (08:21)
[2022-06-03] MEDS: ASPIRIN 81 MG TAB.CHEW PO SCH (08:25)
--- NOTE | 2022-06-03 08:25 | NUR ---
RN NOTE PATIENT REFUSED TO TAKE ASPIRIN IN SPITE EXPLANATION OF RISKS AND BENEFITS. PER PATIENT HE HAS HEARTBURN AND DOESN'T WANT TO TAKE MEDICATION.
[2022-06-03 08:35] LABS: THYROID STIMULATING HORMONE 0.697 uIU/mL (0.358-3.74)
[2022-06-03] MEDS: POTASSIUM CL. PREMIX PERIPHER. 50 ML IV SCH ×4 (11:05→15:00)
[2022-06-03] MEDS: Magnesium 1GM/D5W 100ML PREMIX 100 ML IV SCH ×2 (11:57→12:58)
--- NOTE | 2022-06-03 18:48 | NUR ---
RN CLOSING NOTES PATIENT ASLEEP IN BED. EASILY AROUSED. NO SIGNS OF ACUTE DISTRESS NOTED. STABLE ON ROOM AIR. REMAINS ON TELE MONITOR, CURRENTLY SHOWING SINUS TACH, HR @101. DENIED ANY CHEST PAIN THROUGHOUT THE SHIFT. PATIENT'S POTASSIUM AND MAGNESIUM REPLETED. TOLERATED WELL. SAFETY MEASURE AND SEIZURE PRECAUTIONS OBSERVED. BED IN LOWEST AND LOCKED POSITION, SIDE RAILS UP X2, CALL LIGHT AND TABLE PLACED WITHIN EASY REACH. WILL ENDORSE TO NEXT SHIFT FOR CONTINUITY OF CARE.
--- NOTE | 2022-06-03 19:35 | NUR ---
COOLER MAN OPENING NOTE RECEIVED PATIENT LAYING IN BED, AWAKE. PT A/O X3, ABLE TO VERBALIZE NEEDS. NO SIGNS OF ACUTE DISTRESS NOTED. ON ROOM AIR TOLERATING WELL, NO SOB NOTED, BREATHING EVEN AND UNLABORED. ON TELE MONITOR SHOWING SINUS TACH, HR AT 100. PATIENT DENIES ANY PAIN AT THIS TIME. IV ACCESS TO LEFT AC #20G, INTACT AND PATENT WITH IV FLUID D5 1/2 NS RUNNING AT 75 ML/HR. SAFETY MEASURE IN PLACE. BED IN LOWEST AND LOCKED POSITION, SIDE RAILS UP X2, CALL LIGHT WITHIN REACH. WILL CONTINUE TO MONITOR PATIENT.
[2022-06-04] VITALS (7 sets, daily range): BP systolic 108–130; BP diastolic 67–89
[2022-06-04] MEDS: IV D5/0.45 NACL 1,000 ML IV PRN (00:19)
[2022-06-04 06:48] LABS: BASOPHILS % (AUTO) 0.3 % (0.0-2.0); EOSINOPHILS % (AUTO) 0.5 % (0.0-6.0); HEMATOCRIT 50 % (39-51); HEMOGLOBIN 16.8 g/dL (13.5-17.5); LYMPHOCYTES # (AUTO) 1.5 K/uL (0.8-4.8); LYMPHOCYTES % (AUTO) 18.8 % (20.0-44.0); MEAN CORPUSCULAR HGB CONC 34 g/dl (31.0-36.0); MEAN CORPUSCULAR VOLUME 93 fL (80-96); MONOCYTES # (AUTO) 0.7 K/uL (0.1-1.30); MONOCYTES % (AUTO) 8.5 % (2.0-12.0); NEUTROPHILS # (AUTO) 5.9 K/uL (1.8-8.9); NEUTROPHILS % (AUTO) 71.9 % (43.0-81.0); PLATELET COUNT (AUTO) 233 K/uL (150-450); RED BLOOD CELL COUNT(AUTO) 5.33 MIL/uL (4.5-6.0); WHITE BLOOD COUNT (AUTO) 8.2 K/uL (4.3-11.0)
--- NOTE | 2022-06-04 07:15 | NUR ---
OLERICULTURE PROFESSOR CLOSING NOTE LEFT PATIENT SLEEPING IN BED. EASILY AROUSED. NO SIGNS OF ACUTE DISTRESS NOTED. STABLE ON ROOM AIR. ON TELE MONITOR, CURRENTLY SHOWING SINUS TACH, HR @100. DENIED ANY CHEST PAIN THROUGHOUT THE SHIFT. PT NPO. SAFETY MEASURE AND SEIZURE PRECAUTIONS OBSERVED. BED IN LOWEST AND LOCKED POSITION, SIDE RAILS UP X2, CALL LIGHT AND BED SIDE TABLE WITHIN EASY REACH. WILL ENDORSE TO NEXT SHIFT NURSE FOR CONTINUITY OF CARE.
[2022-06-04 07:29] LABS: CALCIUM, SERUM 9.1 mg/dL (8.5-10.1); CREATININE 0.9 mg/dL (0.6-1.3); MAGNESIUM 2.6 mg/dL (1.8-2.4); PHOSPHORUS 2.6 mg/dL (2.5-4.9); POTASSIUM 3.8 mmol/L (3.5-5.1)
--- NOTE | 2022-06-04 07:30 | NUR ---
DIRECTOR SCHOOL OF NURSING OPENING NOTE RECEIVED PT ASLEEP IN BED, EASILY AROUSED. PT IS A/O X3, ABLE TO MAKE NEEDS KNOWN. ON RA, TOLERATING WELL. NO SOB NOTED. NOT IN ANY SIGN OF RESPIRATORY DISTRESS. ON TELE PRINTING PRESS OPERATOR WITH CURRENT READING OF SINUS RHYTHM, HR 97. NO C/O CARDIAC DISTRESS VOICED OUT AT THIS TIME. IV ACCESS IN VIC G#20 INTACT AND PATENT WITH D5 1/2 NS AT 75ML/HR. SAFETY MEASURES IN PLACE: BED IN LOWEST AND LOCKED POSITION, SIDE RAILS UP X2, AND CALL LIGHT WITHIN REACH. WILL CONTINUE TO MONITOR PT.
[2022-06-04] MEDS: ASPIRIN 81 MG TAB.CHEW PO SCH ×2 (09:00→09:15)
[2022-06-04] MEDS: PANTOPRAZOLE 40 MG VIAL IV SCH (09:14)
[2022-06-04] MEDS ORDERED: MAG HYDROX/AL HYDROX/SIMETH 30 ML UDC PO PRN (12:00)
[2022-06-04] MEDS: CHLORDIAZEPOXIDE HCL 25 MG CAPSULE PO SCH (17:33)
--- NOTE | 2022-06-04 19:10 | NUR ---
TELE OPEN NOTE: RECEIVED PATIENT IN BED. ALERT AND ORIENTED X4. UNLABORED BREATHING. ON TELE MONITOR WITH A READING OF SINUS RHYTHM 95. NO IV ACCESS. WILL TRY TO REINSERT AN IV ACCESS. HOB SEMI-FOWLERS POSITION. BILATERAL HALF SIDE RAIL UP X2. BED IN LOW POSITION, BED IS LOCKED, BED EXIT ALARM ON. CALL LIGHT IN REACH. DENIES PAIN OR DISCOMFORT.
--- NOTE | 2022-06-04 19:21 | NUR ---
TRANSPORTATION PLANNING ENGINEER CLOSING NOTE PT AWAKE AND RESTING IN BED. PT IS A/O X3, ABLE TO MAKE NEEDS KNOWN. ON RA, TOLERATING WELL. NO SOB NOTED. NOT IN ANY SIGN OF RESPIRATORY DISTRESS. ON TELE PROFESSOR OF FOREST PLANNING WITH CURRENT READING OF SINUS RHYTHM, HR 99. NO C/O CARDIAC DISTRESS VOICED OUT AT THIS TIME. IV ACCESS IN VIC G#20 SALINE LOCK. ALL NEEDS ATTENDED. KEPT CLEAN AND COMFORTABLE. SAFETY MEASURES IN PLACE: BED IN LOWEST AND LOCKED POSITION, SIDE RAILS UP X2, AND CALL LIGHT WITHIN REACH. ENDORSED TO SALES ENABLEMENT LEAD NURSE FOR ONOFRE.
--- NOTE | 2022-06-04 22:00 | NUR ---
ATTEMPTED TO REINSERT NEW IV BUT PATIENT REFUSED, EXPLAINED RISKS VS BENEFITS AND VERBALIZED UNDERSTANDING AND STILL REFUSED. OFFERED TIMES THREE. PATIENT STATED HE WANTS TO HAVE THE IV IN THE MORNING.
[2022-06-04] MEDS: OLANZAPINE ZYDIS 5 MG TAB.RAPDIS PO SCH (22:09)
[2022-06-05] VITALS: BP_SYST 106; BP_SYST 93; BP_DIAS 55; BP_DIAS 65
[2022-06-05 04:00] VITALS: BP 106/81
--- NOTE | 2022-06-05 06:52 | NUR ---
TELE CLOSING NOTE: IN BED. ALERT AND ORIENTED X4. UNLABORED BREATHING. ON TELE MONITOR WITH A READING OF SINUS RHYTHM 85. NO IV ACCESS. ATTEMPTED TO REINSERT NEW IV ACCESS BUT CONTINUES TO REFUSED. RISKS VS. BENEFITS EXPLAINED, VERBALIZED UNDERSTANDING AND STILL REFUSED. OFFERED TIMES THREE. KEPT CLEAN AND DRY. HOB SEMI-FOWLERS POSITION. BILATERAL HALF SIDE RAIL UP X2. BED IN LOW POSITION, BED IS LOCKED, BED EXIT ALARM ON. CALL LIGHT IN REACH. DENIES PAIN OR DISCOMFORT.
--- NOTE | 2022-06-05 07:26 | NUR ---
SALT REFINER OPENING NOTE RECEIVED PT ASLEEP IN BED, EASILY AROUSED. PT IS A/O X3, ABLE TO MAKE NEEDS KNOWN. ON RA, TOLERATING WELL. NO SOB NOTED. NOT IN ANY SIGN OF RESPIRATORY DISTRESS. ON TELE DECORATING AND ASSEMBLY SUPERVISOR WITH CURRENT READING OF SINUS RHYTHM, HR 96. NO C/O CARDIAC DISTRESS VOICED OUT AT THIS TIME. PT HAS NO IV ACCESS. OFFERED PT TO REINSERT IV ACCESS, PT REFUSED AT THIS TIME. SAFETY MEASURES IN PLACE: BED IN LOWEST AND LOCKED POSITION, SIDE RAILS UP X2, AND CALL LIGHT WITHIN REACH. WILL CONTINUE TO MONITOR PT.
[2022-06-05 08:00] VITALS: BP 100/68
[2022-06-05] MEDS: PANTOPRAZOLE 40 MG TABLET.DR PO SCH (08:41)
[2022-06-05] MEDS: ASPIRIN 81 MG TAB.CHEW PO SCH (08:42)
[2022-06-05] MEDS: CHLORDIAZEPOXIDE HCL 25 MG CAPSULE PO SCH ×3 (08:42→16:45)
--- NOTE | 2022-06-05 10:00 | NUR ---
BETH faxed clinicals to [facility] TEL:[phone] fax:[phone] for voluntary psychiatric treatment at [facility] [[facility] [place] [address] FAX:[phone]].
--- NOTE | 2022-06-05 10:20 | NUR ---
Lockstitch Sleeve Setter Consult SW received a consult request for suicidal ideation. Pt. is a 56 y.o. white male who was admitted for chest pain. SW met with pt. at bedside. Pt. appears unkempt and is alert and oriented 3x and was cooperative throughout assessment. Pt. was asleep in which SW woke pt. up, pt. did not make eye contact, had a sleepy mood, and had a congruent affect. Pt. stated he was living at home and confirmed his address ([facility] [address] [place] [id number]). Per pt. report they are ambulatory. During assessment, pt. confirmed personal information and persons of contact. Pt. reported he is receiving financial assistance ([employer]). Pt. did report a hx of alcohol abuse. Pt. reported a hx of psychiatric dx (Schizoaffective and Anxiety Disorder) and reported having auditory hallucinations. SW assessed for suicidal and homicidal ideation in which pt. reported he had SI with no plan. Pt. reported no homicidal ideation. DC plan: When asked about pt.s plans after being discharged, pt. reported he would be returning home after discharge. BETH offered pt. voluntary placement at [facility] in which pt. was agreeable. BETH provided pt. with addiction resources and mental health resources in which pt. accepted them. BETH discussed plan to fax clinicals to [facility] with nurse and she was agreeable. Counseling--[facility] [address], [place] [address] (Specializes in in-depth psychotherapy for emotional distress: anxiety, depression, interpersonal conflicts, life transitions, childhood abuse) [facility] [address] [place] [address] (Assist with solving problem marital difficulties, separation & divorce, aging parents, & grief, chronic & terminal illness) [facility] [address] [place] [address] (Deal with loss & grief, anxiety, marital difficulties) [facility] [address] [facility] [address], [address] [place] [address] (Provide in-home mental services to people who are incapable of leaving their homes) [facility] [address] [place] [address] [facility] [address] [place] [address] PSYCHIATRIC OUTPATIENT SERVICES [facility] Partial Hospitalization and Intensive Outpatient Program (Managed Care and [place] Only)[address] [facility] [phone] [facility] Partial Hospitalization and Outpatient [id number] [place], [place] [phone] Pending sale to [facility] [address] [place], [place] [phone] [facility] Partial Hospitalization and Outpatient [id number] [facility], [phone] Substance Abuse resources provided included: [facility] Substance Abuse Self-Helpline ([facility]) ; [facility] [address] [facility]. [place] [id number] ; [facility] [address] [facility] [address] ; [facility] [address] [facility] [address] ; [facility] [address] [facility] [id number] ; [facility] [address] [facility] [address] ; [facility] [address] [facility] [address] ; [facility] Substance Abuse Helpline([facility])-[facility] ; [facility] ; [facility] [place]; [facility]; [facility] [employer]; [facility] [place] [place]; [facility] Fran; [facility] [place]; [facility], [facility]. Jf Giordano; Alcoholics Anonymous -[facility]; Lalo ; Marijuana Anonymous [facility]; Narcotics Anonymous [email or web address];
[2022-06-05] MEDS ORDERED: OLAN5TAB6 PO (11:02)
[2022-06-05] MEDS ORDERED: PANT40TA49 PO (11:02)
[2022-06-05] MEDS ORDERED: ACET325T53 PO (11:02)
--- NOTE | 2022-06-05 12:32 | NUR ---
[facility] called [email or web address] TEL:[phone] and followed up regarding referral and per Courtney they are waiting for feed back from the nursing sup at [facility]. BETH will follow up as needed.
--- NOTE | 2022-06-05 14:30 | NUR ---
Per [facility] TEL:[phone] request SW faxed medical clearance and SW note with statement that pt. is [facility]able [facility] to fax:[phone]
[2022-06-05 15:36] VITALS: BP 107/56
--- NOTE | 2022-06-05 17:06 | NUR ---
BETH called [facility] TEL:[phone] for update and they are still working on placement. BETH provided [facility] unit phone number ad SANNA, rosy's number so they may call with acceptance info.
--- NOTE | 2022-06-05 18:44 | NUR ---
MS RN CLOSING NOTE PT ASLEEP IN BED, EASILY AROUSED. PT IS A/O X3, ABLE TO MAKE NEEDS KNOWN. ON RA, TOLERATING WELL. NO SOB NOTED. NOT IN ANY SIGN OF RESPIRATORY DISTRESS. PT'S TELE VISUAL AND STOCK ASSOCIATE WAS DISCONTINUED AND REMOVED. TELE BOX GIVEN TO NIXON, BUILDING CARPENTER HELPER. PT STILL HAS NO IV ACCESS AND STILL REFUSED REINSERTION, DR. MICA BA AWARE. ALL NEEDS ATTENDED. KEPT CLEAN AND COMFORTABLE. SAFETY MEASURES IN PLACE: BED IN LOWEST AND LOCKED POSITION, SIDE RAILS UP X2, AND CALL LIGHT WITHIN REACH. WILL ENDORSE TO SAND AND GRAVEL PLANT OPERATOR NURSE FOR ONOFRE.
--- NOTE | 2022-06-05 19:23 | NUR ---
MS RN OPENING NOTE PT ASLEEP IN BED, EASILY AROUSED. PT IS A/O X3, ABLE TO MAKE NEEDS KNOWN. ON RA, TOLERATING WELL. NO SOB NOTED. NOT IN ANY SIGN OF RESPIRATORY DISTRESS. PT'S TELE FARMWORKER ANIMAL WAS DISCONTINUED PT REFUSED IV ACCESS AGAIN.ALL NEEDS ATTENDED. KEPT CLEAN AND COMFORTABLE. SAFETY MEASURES IN PLACE: BED IN LOWEST AND LOCKED POSITION, SIDE RAILS UP X2, AND CALL LIGHT WITHIN REACH.
[2022-06-05 20:00] VITALS: BP 171/111
--- NOTE | 2022-06-05 20:45 | NUR ---
RN NOTE RECEIVED A CALL THAT PT HAS BEEN EXCEPTED TO [facility] ADMITTING DR CERON JUST AWAITING NURSE TO NURSE REPORT UNABLE TO GET AN ANSWER FROM [facility] AT THIS TIME WILL TRY AGAIN. PTS BP IS REBECA AT THIS TME PRN IV MED WAS TRIED TO BE ADMINISTER PT REFUSED IV CONTATCED ASSISTANT ELEMENTARY TEACHER AND HAD IT CHANGED TO P.O WILL ADMINISTER SOON AVAILABLE. Addendum: 06/05/22 at 2047 by SHELLY MERCADO RN IV PRN BP MED DISCARDED IN THE PROPER DISCARD BIN WITNESSED BY UBALDO CHAPARRO.
[2022-06-05] MEDS ORDERED: ONDANSETRON HCL/PF 4 MG/2 ML VIAL IVP PRN (21:00)
[2022-06-05] MEDS ORDERED: hydrALAZINE HCL 10 MG TABLET PO PRN ×2 (21:00→22:30)
[2022-06-05] MEDS ORDERED: ONDANSETRON HCL 4 MG/5 ML SOLUTION PO PRN (21:00)
[2022-06-05] MEDS ORDERED: hydrALAZINE HCL 10 MG TABLET PO SCH (21:00)
[2022-06-05] MEDS: OLANZAPINE ZYDIS 5 MG TAB.RAPDIS PO SCH ×2 (21:34→21:44)
--- NOTE | 2022-06-05 21:45 | NUR ---
RN NOTES REPORT GIVEN TO UBALDO PARKS AT [facility] PT WILL BE GOING TO ROOM 629 A.
[2022-06-06] MEDS ORDERED: hydrALAZINE HCL IV 20 MG VIAL IV PRN (05:00)
--- NOTE | 2022-06-06 05:08 | NUR ---
rn note pt aggress to have iv access established prn zofran given tolerated well. pt reporting anxiety stock preparation operator contacted awaiting response.
[2022-06-06] MEDS ORDERED: LORAZEPAM 1 MG TABLET PO ONE (05:30)
--- NOTE | 2022-06-06 05:49 | NUR ---
rn note prn ativan given for anxiety tolerated well.
--- NOTE | 2022-06-06 06:41 | NUR ---
RN NOTE WAS UNABLE TO DISCHARGE PT LAST NIGHT DUE TO PT STATING HE WASN'T FEELING WELL AND HAVING ELEVATED BP ANIMAL TRAINER SUPERVISOR MADE AWARE SO OSMANY MADE AWARE.
--- NOTE | 2022-06-06 07:50 | NUR ---
RN OPENING NOTE RECEIVED PATIENT IN BED, ALERT AND ORIENTED X4. ABLE TO COMMUNICATE NEEDS WITH THE STAFFS. AFEBRILE AND NOT ON ANY FORM OF ACUTE DISTRESS. BREATHING EVEN AND NON LABORED. LUNGS CLEAR ON AUSCULTATION. BOWEL SOUNDS PRESENT ON ALL QUADRANTS. NO C/P PAIN AND DISCOMFORT. SAFETY MEASURES IN PLACE. KEPT BED IN LOWEST POSITION. ADVISED TO USE THE CALL LIGHT WHEN IN NEED OF ASSISTANCE. RECEIVED A CALL FROM [facility] [phone] ASKING US TO DELAY TRANSFER FOR THE MEANTIME AND WILL GIVE US A CALL WHEN THEY ARE READY TO ACCOMMODATE PATIENT-WILL NOTIFY CAREER PLACEMENT SERVICES COUNSELOR.
[2022-06-06 08:44] VITALS: BP 137/65
[2022-06-06] MEDS: ASPIRIN 81 MG TAB.CHEW PO SCH (09:03)
[2022-06-06] MEDS: PANTOPRAZOLE 40 MG TABLET.DR PO SCH (09:03)
[2022-06-06] MEDS: CHLORDIAZEPOXIDE HCL 25 MG CAPSULE PO SCH ×3 (09:03→16:43)
[2022-06-06] MEDS ORDERED: METOCLOPRAMIDE HCL 10 MG/2 ML VIAL IV ONE (12:00)
--- NOTE | 2022-06-06 14:15 | NUR ---
Per [facility] intake([facility] TEL:[phone] ) request, SW notified the pt.'s nurseJose to do nurse to nurse report to [facility] tel: [phone] ext#[phone] the pt. will be accepted under the care of Dr. Hendrix and Dr. Ford. Per intake, room number and transfer time will be given upon nurse to nurse report. Jose stated he will follow up.
[2022-06-06 16:41] VITALS: BP 129/86
--- NOTE | 2022-06-06 18:27 | NUR ---
CHARGER TESTER NOTE PATIENT WAS DISCHARGED TO [facility] [place] AND WAS PICKED UP BY 2 PRESS OPERATOR AUT[employer]AT[employer]. LEFT IN STABLE CONDITION WITH ALL HIS BELONGINGS AND DISCHARGE PAPER. DENIES SI, NO TREMORS OR SEIZURE ACTIVITY. NO NAUSEA OR VOMITING AND NO C/O PAIN OR DISCOMFORT DURING DISCHARGE. REPORT GIVEN TO MOLLY AT AROUND 1400.
[2022-06-07] MEDS ORDERED: AMLODIPINE BESYLATE 5 MG TABLET PO SCH (09:00)
== END 2022-06-06 18:48 | DRG 243 ==
LOC: ER 13:40 → TELE 20:26 → MED 06-05 16:42
PROVIDERS: ADMIT Student in an Organized Health Care Education/Training Program; ATTEND Nurse Practitioner Acute Care
DX: K21.9 Gastro-esophageal reflux disease without esophagitis (principal); E87.1 Hypo-osmolality and hyponatremia; R45.851 Suicidal ideations; F10.239 Alcohol dependence with withdrawal, unspecified; F32.A Depression, unspecified; E87.6 Hypokalemia; F17.210 Nicotine dependence, cigarettes, uncomplicated; F19.10 Other psychoactive substance abuse, uncomplicated; I10 Essential (primary) hypertension; F41.9 Anxiety disorder, unspecified; Y90.3 Blood alcohol level of 60-79 mg/100 ml; I25.10 Atherosclerotic heart disease of native coronary artery without angina pectoris; F20.0 Paranoid schizophrenia; Z20.822 Contact with and (suspected) exposure to COVID-19
CPT/HCPCS: 36415; 71045-TC; 80048-TC; 80061-TC; 80076-TC; 81001; 83690-TC; 83735-TC; 84100-TC; 84443-TC; 84484-TC; 85025-TC; 87081-TC; 93307-TC; C9113; C9803; G0378; G0480; J0360; J2060; J2405; J2765; J3475; J3480; J3490; J7030; J7050; Q0162